=== PATIENT | female | born 1940 | race Caucasian/White ===

== ENCOUNTER 2019-01-23 09:45 | Inpatient (IN) ==
--- NOTE | 2019-01-10 15:11 | PAT Medication Instructions ---
Medication Instructions Date of Service January 10, 2019 Home Medications acetylcysteine [NAC] 600 mg PO BID albuterol sulfate 0.63 mg INHALATION QID PRN albuterol sulfate [Ventolin HFA] 2 puff INHALATION QID PRN aspirin 81 mg PO QPM azithromycin 250 mg PO QAM calcium carbonate-vitamin D3 1 cap PO BID qswahuwqkod-cjhwxaqxf-sswbqvqu 1 inh INHALATION QAM levothyroxine 75 mcg PO UD meclizine 25 mg PO DAILY PRN meloxicam 15 mg PO 3XWK metoprolol succinate 25 mg PO DAILY montelukast 10 mg PO QAM olopatadine [Patanol] 1 drp OPHTHALMIC (EYE) BID PRN omeprazole 40 mg PO 3XWK ropinirole 0.5 mg PO HS PRN sodium chloride [Saline Nasal] 1 spray INTRANASAL DAILY Continue as directed azithromycin 250 mg PO QAM omeprazole 40 mg PO 3XWK ASK your surgeon for instructions meloxicam 15 mg PO 3XWK STOP taking 24 hours before surgery ropinirole 0.5 mg PO HS PRN DO NOT take the morning of surgery acetylcysteine [NAC] 600 mg PO BID calcium carbonate-vitamin D3 1 cap PO BID montelukast 10 mg PO QAM sodium chloride [Saline Nasal] 1 spray INTRANASAL DAILY Take morning of surgery With a small sip of water, OTHERWISE NOTHING TO EAT OR DRINK AFTER MIDNIGHT: albuterol sulfate 0.63 mg INHALATION QID PRN (use if needed; please bring with you to hospital day of surgery if possible) albuterol sulfate [Ventolin HFA] 2 puff INHALATION QID PRN (if needed) ifymhdsowct-xbowwnjzc-twzqpaaz 1 inh INHALATION QAM levothyroxine 75 mcg PO UD meclizine 25 mg PO DAILY PRN (if needed) metoprolol succinate 25 mg PO DAILY olopatadine [Patanol] 1 drp OPHTHALMIC (EYE) BID PRN (if needed) Take evening before surgery acetylcysteine [NAC] 600 mg PO BID albuterol sulfate 0.63 mg INHALATION QID PRN (if needed) albuterol sulfate [Ventolin HFA] 2 puff INHALATION QID PRN (if needed) aspirin 81 mg PO QPM calcium carbonate-vitamin D3 1 cap PO BID meclizine 25 mg PO DAILY PRN (if needed) olopatadine [Patanol] 1 drp OPHTHALMIC (EYE) BID PRN (if needed) Other Notes If you have any questions please call us at [phone] or [phone] or [phone] or [phone]
--- NOTE | 2019-01-11 10:01 | Anesthesiology Consultation ---
Date of Service January 11, 2019 Assessment & Plan (1) Encounter for pre-operative examination: - Okay to continue ASA perioperatively per surgeon. - Possible difficult intubation due to anatomy* Chart Review Chart Review: Acceptable Risk for Surgery (pending evaluation of clinical status AM DOS) and Patient seen in Pre Admission Testing Teaching & Discussion Pre-Anesthesia Teaching/Discussion Notes: Instructed NPO after midnight before surgery,except medications with 15 cc of water. Medication instructions provided according to the PAT guidelines. History Surgery Operation Date: 01/23/19 08:50 Proposed Procedures p Right Total Knee Replacement - Billy Galeano MD Height/Weight Height: 5 ft Weight: 76.2 kg Allergies Allergy/AdvReac Type Severity Reaction Status Date / Time ampicillin Allergy Mild RASH Verified 01/08/19 10:23 clindamycin Allergy Mild RASH Verified 01/08/19 10:23 doxycycline Allergy Mild RASH Verified 01/08/19 10:23 erythromycin base Allergy Mild RASH Verified 01/08/19 10:23 nitrofurantoin Allergy Mild RASH Verified 01/08/19 10:23 tetracycline Allergy Mild RASH Verified 01/11/19 10:07 Medications Home Medications Medication Instructions Recorded Confirmed Last Taken acetylcysteine [NAC] 600 mg PO BID 01/08/19 01/08/19 Unknown albuterol sulfate 0.63 mg INHALATION QID PRN 01/08/19 01/08/19 Unknown albuterol sulfate [Ventolin HFA] 2 puff INHALATION QID PRN 01/08/19 01/08/19 Unknown aspirin 81 mg PO QPM 01/08/19 01/08/19 Unknown azithromycin 250 mg PO QAM 01/08/19 01/08/19 Unknown calcium carbonate-vitamin D3 1 cap PO BID 01/08/19 01/08/19 Unknown [Calcium 600 + D(3)] jorrcmkqvyl-mfehusdam-xpgofrfn 1 inh INHALATION QAM 01/08/19 01/08/19 Unknown [Trelegy Ellipta] levothyroxine 75 mcg PO UD 01/08/19 01/08/19 Unknown meclizine 25 mg PO DAILY PRN 01/08/19 01/08/19 Unknown meloxicam 15 mg PO 3XWK 01/08/19 01/08/19 Unknown metoprolol succinate 25 mg PO DAILY 01/08/19 01/08/19 Unknown montelukast 10 mg PO QAM 01/08/19 01/08/19 Unknown olopatadine [Patanol] 1 drp OPHTHALMIC (EYE) BID PRN 01/08/19 01/08/19 Unknown omeprazole 40 mg PO 3XWK 01/08/19 01/08/19 Unknown ropinirole 0.5 mg PO HS PRN 01/08/19 01/08/19 Unknown sodium chloride [Saline Nasal] 1 spray INTRANASAL DAILY 01/08/19 01/08/19 Unknown Past Medical History Medical History Asthma COPD (chronic obstructive pulmonary disease) GERD (gastroesophageal reflux disease) CONTROLLED Hyperlipidemia BORDERLINE Hypertension Hypothyroidism Osteoarthritis Restless leg syndrome Sleep apnea CPAP Urinary urgency Vertigo Past Family History Family History Father Family history of diabetes mellitus Past Surgical History Surgical History History of adenoidectomy History of arthroscopy RT KNEE History of bronchoscopy History of cataract surgery RT History of colonoscopy History of endoscopic sinus surgery History of thyroidectomy, subtotal X2 (NODULE REMOVED) History of tonsillectomy History of tooth extraction Past Anesthesia History No Hx of Anesthesia Complications and No Family Hx of Anesthesia Complications History of PONV No Motion Sickness Screening History of Motion Sickness: No Social History Smoking Status: Never smoker Do You Dip or Chew Tobacco: No Hx Alcohol Use: Yes Alcohol type: wine alcohol intake frequency: holidays/special occasions only Hx Substance Use: No substance use type: does not use Exercise / Class Metabolic Activity III < 4 Walking/Shop/Light housework Review of Systems Patient had complaints of wheezing and coughing (improving). Thoracic medicine ordered respiratory PCR and CXR (both of which were negative). Patient denies chest pain, shortness of breath, palpitations. Physical Exam Vital Signs VITALS BP 154/84 P 70 TEMP 98.2 SP02 97% RESP 20 PHYSICAL Full neck and c-spine range of motion. Full TMJ range of motion. TMD 1.5 finger breaths Mallampati Score 4 Dentition: intact, several crowns on molars Lungs: lower lung base rhonchi Cardiac: regular rate and rhythm, no murmurs noted Spine: normal Carotid arteries: negative bruit Extremities: no edema Small chin Small oral opening Testing Electrocardiogram Date: 01/11/19 NSR at 67bpm. NS STA. Chest X-Ray Date: 01/10/19 Findings: + NAD Laboratory Results 01/11/19 10:30 01/11/19 10:30 Blood Type A Positive 01/11/19 10:30 Antibody Screen NEGATIVE 01/11/19 10:30 PT 10.5 Seconds (9.0-12.0) 01/11/19 10:30 INR 1.0 (0.9-1.1) 01/11/19 10:30 APTT 32.5 Seconds (21.0-31.0) H 01/11/19 10:30
[2019-01-11 11:16] LABS: Basophils # (auto) 0.03 K/uL (0-0.2); Basophils % (auto) 0.7 %; Eosinophils # (auto) 0.15 K/uL (0-0.5); Eosinophils % (auto) 3.5 %; Hematocrit (blood only) 40.1 % (37-47); Hemoglobin 12.9 g/dL (12.0-16.0); Lymphocytes # (auto) 0.95 K/uL (1.2-3.4); Lymphocytes % (auto) 21.9 %; Mean Corpuscular Hgb Conc 32.2 g/dL (32-36); Mean Corpuscular Volume 90.9 fL (80-100); Mean Platelet Volume 9.6 fL (7.4-10.4); Monocytes # (auto) 0.31 K/uL (0.11-0.59); Monocytes % (auto) 7.2 %; Neutrophils # (auto) 2.89 K/uL (1.4-6.5); Neutrophils % (auto) 66.7 %; Platelet Count 237 K/uL (130-400); RDW Coefficient of Variation 14.1 % (11.5-14.5); RDW Standard Deviation 47.2 fL (36.4-46.3); Red Blood Count 4.41 M/uL (4.2-5.4); White Blood Count 4.33 K/uL (4.8-10.8)
[2019-01-11 11:25] LABS: BUN Creatinine Ratio 24.3 (10-20); Calcium 9.6 mg/dl (8.5-10.1); Creatinine Clr Calc Pharmacy 33.8 ml/min; Est GFR (African American) 48.3; Est GFR (Non-African American) 41.7; Potassium 4.8 mmol/L (3.5-5.1)
[2019-01-11 11:33] LABS: Partial Thromboplastin Ratio 1.2; Partial Thromboplastin Time 32.5 Seconds (21.0-31.0); Prothrombin Time 10.5 Seconds (9.0-12.0)
--- NOTE | 2019-01-20 11:32 | History and Physical Report ---
DATE OF ADMISSION: 01/23/2019 CHIEF COMPLAINT: Right knee pain and discomfort. HISTORY OF PRESENT ILLNESS: The patient is a 78-year-old female who presents for surgical treatment of her right knee. She has got a long history of right knee problem and had a right knee scoped back in 2000. She developed increased pain and discomfort globally over the past several years. The more she walks, the more it hurts. It also feels unstable like it is going to give out on her. She has been through conservative care in the past. She had her knee scoped and then had various medicines which do not really help much. She has difficulty going up and down steps. She has nighttime pain. She would like to proceed with knee replacement. PAST MEDICAL HISTORY: 1. Hypothyroidism. 2. 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 3. Hypertension. 4. Elevated cholesterol. 5. Gastroesophageal reflux disease. 6. Mild obesity, BMI of 33. PAST SURGICAL HISTORY: Previous surgeries include: 1. Sinus surgery. 2. Trigger finger repair. 3. Right knee arthroscopy done in 2000 by myself. 4. Partial thyroidectomy. ALLERGIES: PENICILLIN, CLINDAMYCIN, ERYTHROMYCIN, NITROFURANTOIN, TETRACYCLINE, VIBRAMYCIN, ALL WHICH CAUSE RASH. No breathing problems with any of these meds. CURRENT MEDICINES: Include: 1. Levothyroxine 75 mcg. 2. Meloxicam 15 mg. 3. Latanoprost ophthalmic solution 2 drops in each eye as needed. 4. Montelukast 10 mg. 5. Vitamin C. 6. Omeprazole 40 mg. 7. Aspirin 81 mg. 8. Calcium with D. 9. Ropinirole 0.5 mg at bedtime for restless leg. 10. Meclizine 25 mg 3 times a day as needed. 11. Ventolin inhaler 2 puffs every 4-6 hours p.r.n. 12. Metoprolol 25 mg. 13. Nasal spray. 14. Eyedrops. 15. Erythromycin 250. 16. Albuterol inhaler every 4 hours p.r.n. 17. Ellipta inhaler once a day. 18. Spiriva once a day. SOCIAL HISTORY: A 78-year-old female. She is . Lives alone. Lives in [place]. No alcohol intake. She does not smoke. FAMILY HISTORY: Significant for heart disease and diabetes. REVIEW OF SYSTEMS: Significant for some emphysema and COPD and bronchiectasis. She has got a CPAP machine. Denies any chest pain or shortness of breath. No DVT or PE. PHYSICAL EXAMINATION: GENERAL: Reveals a pleasant elderly female. Looks to be in pretty good health. HEENT: Benign. NECK: Supple. No lymphadenopathy. LUNGS: Clear to auscultation. HEART: Regular rate and rhythm. ABDOMEN: Soft, nontender, nondistended. EXTREMITIES: Grossly neurovascularly intact except as follows: Examination of the right leg reveals the patient walks independently. She does limp on this right side with a varus alignment and walks with a bit of flexed knee gait. She has got bony hypertrophy medially. Small knee effusion. Range of motion is 10 degrees short of full extension to 100 degrees of flexion. She is pretty tight with flexion. No varus or valgus instability. No pain with hip motion. X-RAYS: X-rays of the right knee reviewed. Shows advanced right knee DJD. She has got complete loss of medial joint space. She has tibial femoral subluxation. Fairly large posterior osteophytes. ASSESSMENT: A 78-year-old white female with advanced right knee degenerative joint disease with history of knee arthroscopy 19 years ago. She has failed conservative treatment and would like to have her right knee replaced. PLAN: We will take her to the operating room and do a right total knee replacement. The risks and benefits of this procedure were explained to the patient including but not limited to DVT, PE, , infection, neurological injury, vascular injury, bleeding problem, pain, limited range of motion, stiffness, failure to relieve her symptoms, incomplete relief of symptoms, need for further surgery in the future, fracture, leg length inequality, nerve palsy, etc. The patient understands and desires to proceed. Informed consent was obtained. As far as discharge plans, she lives alone and is hoping to be discharged to [place] for a brief rehab stay. She does have this ALLERGIC REACTION TO PENICILLIN. It is only hives and we will give her Ancef preoperatively.
[~2019-01-23 09:45] MED LIST: ACETAMINOPHEN 500 MG TAB PO SCH; ATROPINE SULFATE 0.1 MG/ML 10ML SYR IV PRN; BUPIVACAINE 0.5 % 5 MG/1 ML PF 10ML VIAL ONE; BUPIVACAINE LIPOSOME/PF 266 MG, BUPIVACAINE/EPINEPHRINE 50 ML, SODIUM CHLORIDE 0.9% 30 ... INFIL SCH; CEFAZOLIN 2000MG 2,000 MG/15 ML SYR IV SCH; FAMOTIDINE 20 MG TAB PO SCH; GABAPENTIN 300 MG PO SCH; GENERAL ORDER PROBLEM SCH; LR 500ML BOLUS, THEN 15ML/HR IV SCH; LR 60ML/HR IV SCH; METOCLOPRAMIDE HCL 10 MG TABLET PO SCH; ONDANSETRON INJ 2 MG/ML 2 ML VIAL IV PRN; ROPIVACAINE 0.5% 5 MG/ML 30 ML VIAL ONE; TRANEXAMIC ACID 1,000 MG **IV Intra-op IV SCH; TRANEXAMIC ACID 1,000 MG x 1 **For Topical Use TOP SCH; ePHEDrine sulfate 50 MG/ML AMP IV PRN; fentaNYL citrate 100 MCG/2 ML VIAL IV PRN
--- OUTSIDE RECORDS SUMMARY | 2019-01-23 10:58 | External Medical Summary | Continuity of Care Document ---
:1940 Author Name Bladimir Joseph, Provider Address Unavailable Unavailable , Care Team Providers Name Role Phone Victoria Johnson [email or web address] Bladimir HERNANDEZ, Doris [email or web address] Bud [email or web address] INDERJIT Joseph, VICTORIA Haas Unavailable Unavailable NOE Unavailable Unavailable ALEXIS, R Unavailable Unavailable EICHENLAUB, A Unavailable Unavailable Unavailable Unavailable Unavailable Problems Chronic sinusitis (473.9) (J32.9) Dizziness (780.4) (R42) Backache (724.5) (M54.9) Bronchiectasis (494.0) (J47.9) Abnormal finding on thyroid function test (794.5) (R94.6) Visit for screening mammogram (V76.12) (Z12.31) Asthma (493.90) (J45.909) Allergic rhinitis (477.9) (J30.9) GERD without esophagitis (530.81) (K21.9) Hypothyroidism (244.9) (E03.9) Osteopenia (733.90) (M85.80) Fatigue (780.79) (R53.83) Plantar fasciitis (728.71) (M72.2) Need for immunization against influenza (V04.81) (Z23) Need for prophylactic vaccination agains t Streptococcus pneumoniae (pneumococcus) (V03.82) (Z23) Urinary frequency (788.41) (R35.0) Cystocele, midline (618.01) (N81.11) Abnormality of colon (569.9) (K63.9) Osteoarthritis of knee (715.36) (M17.10) Benign essential hypertension (401.1) (I10) Labile hypertension (401.9) (R09.89) Obstructive sleep apnea (327.23) (G47.33) Primary osteoarthritis of right knee (715.16) (M17.11) Never smoker Allergies and Adverse Reactions Ampicillin CAPS (Allergy) Clindamycin (Allergy) Erythromycin Derivatives (Allergy) Nitrofurantoin CAPS (Allergy) Tetracyclines (Allergy) Vibramycin CAPS (Allergy) Medications Shingrix 50 MCG Intramuscular Suspension Reconstituted; 0.5 mL now and again in 2-6 months Opal Johnson Start: 03-May-2018 Quantity: 0.5 Refills: 1 rOPINIRole HCl - 0.5 MG Oral Tablet; 1 t ab at bedtime as needed for restless legs Opal Johnson Start: 21-Mar-2014 Quantity: 90 Refills: 1 Patanol 0.1 % Ophthalmic Solution; USE 2 DROPS IN EACH EYE ONCE DAILY NEEDED Opal Jonhson Start: 21-Jan-2014 Quantity: 5 Refills: 4 Azithromycin 250 MG Oral Tablet; 1 tab daily Start: 21-Sep-2018 Refills: 0 30 Tablet Bottle Meclizine HCl - 25 MG Oral Tablet; TAKE 1 TABLET 3 TIMES LUANA LY NEEDED. Start: 18-Aug-2015 Quantity: 90 Refills: 0 Metoprolol Succinate ER 25 MG Oral Table t Extended Release 24 Hour; TAKE 1 TABLET DAILY. MARY Garrison Start: 16-Feb-2016 Refills: 3 100 Tablet Bottle Montelukast Sodium 10 MG Oral Tablet; TAKE ONE TABLET BY MOUTH ONCE A DAY. Opal Johnson Start: 20-Feb-2014 Quantity: 90 Refills: 1 Eye Drops 0.05 % Ophthalmic Solution; INSTILL 1 DROP I NTO BOTH EYES ONCE DAILY. Start: 03-May-2018 Refills: 0 15 ML Bottle Nasal [place] 0.05 % Nasal Solution; INSTILL 2 SQUIRT Daily Start: 03-May-2018 Refills: 0 30 ML Bottle Acetylcysteine Powder; USE DIRECTED. Start: 03-May-2018 Refills: 0 Calcium-Vitamin D 600-125 MG-UNIT Oral Tablet; TAKE 1 TABLET TWICE DAILY. Start: 20-Feb-2014 Refills: 0 Aspirin EC 81 MG Oral Tablet Delayed Release; TAKE 1 TABLET DAILY. Start: 20-Feb-2014 Quantity: 90 Refills: 3 Vitamin C 500 MG Oral Capsule; TAKE 1 CAPSULE DAILY. Start: 20-Feb-2014 Refills: 0 Omeprazole 40 MG Oral Capsule Delayed Re lease; TAKE 1 CAPSULE, BY MOUTH, EVERY DAY. Opal Johnson Start: 23-Nov-2018 Quantity: 30 Refills: 11 Trelegy Ellipta 100-62.5-25 MCG/INH Inha lation Aerosol Powder Breath Activated; 1 puff daily Start: 21-Sep-2018 Refills: 0 28 Inhaler Pack Albuterol Sulfate (2.5 MG/3ML) 0.083% In halation Nebulization Solution; INHALE 1 VIAL Every 4 hours PRN Start: 21-Sep-2018 Refills: 2 Levothyroxine Sodium 75 MCG Oral Tablet; TAKE 1 AND 1/2 TABLETS ON TUESDAY THEN TAKE 1 TABLET ON ALL OTHER DAYS OF THE WEEK Opal Johnson Start: Nov-2018 Quantity: 45 Refills: 5 Meloxicam 15 MG Oral Tablet; TAKE 1 TABLET DAILY. DO Bud Love Start: 24-Aug-2018 Quantity: 90 Refills: 1 Ventolin HFA 108 (90 Base) MCG/ACT Inhal ation Aerosol Solution; INHALE 2 PUFFS EVERY 4-6 HOURS NEEDED. MARY Garrison Start: 18-Aug-2015 Quantity: 1 18 GM Inhaler Refills: 1 Procedures Procedures not documented Immunizations Pneumococcal polysaccharide vaccine, 23 valent On: 5 Zoster (Zostavax) On: 27-May-2009 Tdap (Adacel) On: 18-Sep-2010 Fluzone High-Dose Intramuscular Suspension On: 15-Jul-2014 1 6:32 Lot #: [id number], SANOFI PASTEUR Prevnar 13 Intramuscular Suspension On: 26-Aug-2014 8:21 Lot #: [id number], W[place]ETH Fluzone High-Dose Intramuscular Suspension On: 04-Jul-2015 14 :28 Lot #: [id number], SANOFI PASTEUR Fluzone High-Dose Intramuscular Suspension On: 14-Jun-2016 1 5:04 Lot #: [id number], SANOFI PASTEUR Fluzone High-Dose Intramuscular Suspension On: 18-Jul-2017 1 6:32 Lot #: [id number], SANOFI PASTEUR Fluzone High-Dose Intramuscular Suspension On: 15-Jun-2018 1 3:46 Lot #: [id number], SANOFI PASTEUR Social History - Smoking Status Never smoker Plan of Treatment Planned Encounters Appointment; Victoria Johnson M.D. Start: 06-Sep-2019 10:45 Req uest Planned Observations Planned Goals not documented Results CBC With DIFF (Pending) Laboratory: [facility] [address] [facility] [address] tel: 11-Jan-2019 10:30 WBC 4.33 K/uL (below low Range: 4.8-10. 8 K/uL threshold) RBC 4.41 {M/uL} Range: 4.2-5.4 M/uL HEMOGLOBIN 12.9 g/dL Range: 12.0-16.0 g /dL HEMATOCRIT 40.1 % Range: 37-47 % MCV 90.9 fL Range: 80-100 fL MCH 29.3 pg Range: 25-34 pg MEAN CORPUSCULAR HGB CONC 32.2 Range: 3 2-36 g/dL g/dL RED CELL DISTRIBUTION WIDTH SD Range: 3 6.4-46.3 fL 47.2 fL (above high threshold) RED CELL DISTRIBUTION WIDTH CV Range: 1 1.5-14.5 % 14.1 % PLATELET COUNT 237 K/uL Range: 130-400 K/uL MEAN PLATELET VOLUME 9.6 fL Range: 7.4- 10.4 fL NEUT % 66.7 % Range: % LYMPH % 21.9 % Range: % MONO % 7.2 % Range: % EOS % 3.5 % Range: % BASO % 0.7 % Range: % IG% 0.0 % Range: % Neutrophils (Auto) 2.89 K/uL Range: 1. 4-6.5 K/uL LYMPH ABS # 0.95 K/uL (below low Range: 1.2-3.4 K/uL threshold) MONO ABS # 0.31 K/uL Range: 0.11-0.59 K /uL EOS ABS # 0.15 K/uL Range: 0-0.5 K/uL BASO ABS # 0.03 K/uL Range: 0-0.2 K/uL IG# 0.00 K/uL Range: 0.00-0.02 K/ uL Basic Metabolic Panel Laboratory: [facility] Laboratory [address] (Pending) [address] [facility] [address] tel: 11-Jan-2019 10:30 SODIUM 139 mmol/L Range: 136-145 mmol /L POTASSIUM 4.8 mmol/L Range: 3.5-5.1 mmo l/L CHLORIDE 111 mmol/L (above high Range: 98-107 mmol/L threshold) CARBON DIOXIDE 25 mmol/L Range: 21-32 m mol/L ANION GAP 3.0 Range: 3-11 BLOOD UREA NITROGEN 30 mg/dl Range: 7-1 8 mg/dl (above high threshold) CREATININE 1.23 mg/dl (above high Range: 0.6-1.2 mg/dl threshold) Estimated Creatinine Clearance Range: m l/min 33.8 ml/min Comments: Est. Creat inine Clearance (Mod Cockcroft-Gault) for pharmacydosing purposes. Estimated GFR () Comment s: Units: ml/min per 48.3 1.73 meters squaredT he estimated GFR (CKD-E PI equation) has not be en validatedfor inpatie nt settings and may not be an accurate reflectiono f renal function in critical ly ill patients or those withrapidly changing renal function (e.g. VANESSA). Estimated GFR (Non- Comments: Uni ts: ml/min per Bahamian) 41.7 1.73 meters squaredT he estimated GFR (CKD-E PI equation) has not be en validatedfor inpatie nt settings and may not be an accurate reflectiono f renal function in critical ly ill patients or those withrapidly changing renal function (e.g. VANESSA). BUN/CREATININE RATIO 24.3 (above Range: 10-20 high threshold) GLUCOSE 91 mg/dl Range: 70-99 mg/dl CALCIUM 9.6 mg/dl Range: 8.5-10.1 mg/ dl PT/INR (Pending) Laboratory: [facility] [address] [facility] [address] tel: 11-Jan-2019 10:30 Prothrombin Time 10.5 {Seconds} Range: 9.0-12.0 Seconds INR 1.0 Range: 0.9-1.1 PTT (Pending) Laboratory: [facility] [address] [facility] [address] tel: 11-Jan-2019 10:30 PTT PATIENT 32.5 {Seconds} (above Range: 21.0-31.0 Seconds high threshold) Comments: Therapeuti c APTT range is 46.0 - 66.4 seconds PARTIAL THROMBOPLASTIN RATIO 1.2 Encounters Appointment; Victoria Johnson M.D. 21-Sep-2018 11:30 Encounter Diagnosis: Problem not documented Appointment; LEONEL Graf Nurse 21-Sep-2018 11:15 Encounter Diagnosis: Problem not documented Appointment; LEONEL Graf Nurse 15-Jun-2018 13:10 Encounter Diagnosis: Problem not documented Appointment; Victoria Johnson M.D. 03-May-2018 13:45 Encounter Diagnosis: Problem not documented Appointment; Victoria Johnson M.D. 24-Aug-2017 10:45 Encounter Diagnosis: Problem not documented Appointment; Nurse Celso 24-Aug-2017 10:30 Encounter Diagnosis: Problem not documented Appointment; LEONEL Graf Nurse 18-Jul-2017 15:55 Encounter Diagnosis: Problem not documented Appointment; Victoria Johnson M.D. 06-Sep-2019 10:45 Encounter Diagnosis: Problem not documented
[2019-01-23] MEDS ORDERED: CEFAZOLIN 2000MG 2,000 MG/15 ML SYR IV ONE (11:00)
--- NOTE | 2019-01-23 11:03 | History & Physical Bridge Note ---
Date of Service January 23, 2019 History & Physical Bridge Note I have examined the patient, reviewed the History & Physical and in the interval since the performance of the History & Physical I have noted the following changes of clinical significance: no changes noted
[2019-01-23] MEDS ORDERED: ALBUT/IPRATROP 3MG/0.5MG NEB 3 ML VIAL NEB STA (11:50)
[2019-01-23] MEDS ORDERED: MIDAZOLAM HCL 1 MG/ML 2ML VIAL ONE (12:27)
[2019-01-23] MEDS ORDERED: fentaNYL citrate 100 MCG/2 ML VIAL ONE (12:28)
[2019-01-23] MEDS ORDERED: SODIUM CHLORIDE 0.9% PF 50 ML VIAL ONE (13:05)
[2019-01-23] MEDS ORDERED: EPINEPHrine INJ 1 MG/ML AMP ONE (13:05)
[2019-01-23] MEDS ORDERED: BUPIVACAINE LIPOSOME 1.3% 266 MG/20 ML VIAL ONE (13:05)
[2019-01-23] MEDS ORDERED: BACITRACIN INJ 50,000 UNIT VIAL ONE (13:05)
[2019-01-23] MEDS ORDERED: BUPIVACAINE 0.25% 30 ML VIAL ONE (13:05)
[2019-01-23] MEDS ORDERED: LIDOCAINE HCL 2% 2 ML VIAL/AMP(20MG/ML) INFIL ONE (14:22)
[2019-01-23] MEDS ORDERED: PROPOFOL IV EMULSION 10 MG/ML 20 ML VIAL IV ONE ×2 (14:22→14:31)
--- NOTE | 2019-01-23 15:00 | Post Operative Brief Note ---
Immediate Post Op Note v1 Date of Surgery January 23, 2019 Pre & Post Diagnosis Operation Date: 01/23/19 12:30 Pre-Op Diagnosis: Right Knee Advanced Degenerative Joint Disease Post-Op Diagnosis: Right Knee Advanced Degenerative Joint Disease Procedure Operation Date: 01/23/19 12:30 Actual Procedures p Right Total Knee Arthroplasty(Right) - Billy Galeano MD Surgeon Billy Galeano MD Health Science Writer Jean, PAC Estimated Blood Loss 50 Findings Consistent with Post-Op Diagnosis Fluids 1300 cc Specimens Right Knee Drains Rodriguez Catheter (A 16 Tongan rodriguez catheter was inserted by ST [place], without difficulty, clear yellow urine obtained, output to be monitored by Anesthesia.) Anesthesia Type Spinal MAC Complications none Disposition Accompanied Patient To Recovery: No Disposition: Recovery Room
--- NOTE | 2019-01-23 15:34 | XRay Report ---
RIGHT KNEE 2 VIEWS History: Right total knee arthroplasty. Degenerative arthritis. Postop. FINDINGS: The patient is status post a right total knee arthroplasty. The hardware is intact. No frac ture or dislocation. Skin marie are in place. IMPRESSION: Right total knee arthroplasty. No evidence for hardware complication. Electronically signed by: Johnathan Scott M.D. 01/23/2019 3:32 PM
--- NOTE | 2019-01-23 15:51 | Anesthesiology Progress Note ---
Date of Service January 23, 2019 Anesthesia Post Procedure Vital Signs Vital Signs: Temp Pulse Pulse Resp BP BP Pulse Ox 01/23/19 15:40 36.9 C 60 16 154/80 H 99 01/23/19 15:30 60 16 158/72 H 99 01/23/19 15:20 59 L 16 171/73 H 98 01/23/19 15:10 60 16 152/71 H 99 01/23/19 15:04 37.0 C 60 16 137/63 99 01/23/19 11:57 67 14 96 01/23/19 10:42 36.8 C 70 18 214/92 H 97 Pain Intensity Right Knee: Pain Intensity: 0 Transfer of Care Handoff Completed per policy Notes Mental Status: alert / awake / arousable Patient Amnestic to Procedure: Yes Nausea / Vomiting: adequately controlled Pain: adequately controlled Airway Patency, RR, SpO2: stable & adequate BP & HR: stable & adequate Hydration State: stable & adequate Neuraxial Anesthesia: was administered and sensory block is resolving Anesthetic Complications: no major complications apparent and Pt Satisfied with anesthetic care
[2019-01-23] MEDS ORDERED: ROPINIROLE HCL 0.25 MG TABLET PO PRN (16:06)
[2019-01-23] MEDS ORDERED: MECLIZINE HCL 25 MG TAB PO PRN (16:06)
[2019-01-23] MEDS ORDERED: MAGNESIUM HYDROXIDE SUSP 30 ML UDC PO PRN (16:06)
[2019-01-23] MEDS ORDERED: NALOXONE HCL 0.4 MG/1 ML VIAL/CARP IV PRN (16:06)
[2019-01-23] MEDS ORDERED: BISACODYL 10 MG SUPP PR PRN (16:06)
[2019-01-23] MEDS ORDERED: NO NSAIDS SCH (16:06)
[2019-01-23] MEDS ORDERED: ALBUTEROL HFA 8 GM INHALER INH PRN (16:06)
[2019-01-23] MEDS ORDERED: ALUMINUM/MAGNESIUM SUSP 30 ML UDC PO PRN (16:06)
[2019-01-23] MEDS ORDERED: METOCLOPRAMIDE HCL INJ 5 MG/ML 2 ML VIAL IV PRN (16:06)
[2019-01-23] MEDS ORDERED: ALBUTEROL 0.083% NEBU SOLN 3 ML VIAL INH PRN ×2 (16:06→17:00)
[2019-01-23] MEDS: ASCORBIC ACID 500 MG TAB PO SCH (18:44)
[2019-01-23] MEDS: FERROUS GLUCONATE 324 MG TAB PO SCH (18:44)
[2019-01-23] MEDS: SODIUM CHLORIDE 0.9% 1000ML 1,000 ML IV SCH (18:54)
--- NOTE | 2019-01-23 20:43 | Operative Report ---
DATE OF OPERATION: 01/23/2019 SURGEON: Billy Galeano MD. TEMPERING MACHINE OPERATOR: ALPHONSO Capellan. PREOPERATIVE DIAGNOSIS: Right knee degenerative joint disease. POSTOPERATIVE DIAGNOSIS: Right knee degenerative joint disease. PROCEDURE PERFORMED: Right cemented posterior stabilized total knee arthroplasty. COMPLICATIONS: None. ESTIMATED BLOOD LOSS: 50 mL. FLUID REPLACEMENT: 1300 mL of crystalloid fluid replacement. ANESTHESIA: Spinal with adductor canal block. DRAINS: None. SPECIMENS: Right knee sent for pathology. TOURNIQUET TIME: 54 minutes at 300 mmHg. OPERATIVE INDICATIONS: The patient is a 78-year-old very active, independent female who has had a long history of knee problems. She had a right knee scoped about 19 years ago. She did pretty well, but over the past 5-10 years, she developed increased pain and discomfort in her right knee. She has been through extensive conservative treatment. It was really starting to limit her lifestyle and ability to maintain an independent lifestyle and she elected to proceed with total knee arthroplasty. OPERATIVE FINDINGS: Revealed advanced right knee DJD. She had extensive grade 4 changes in all 3 compartments, most severe in the medial and patellofemoral compartments. She had a fixed varus deformity to her knee and a 10 degree flexion contracture. She had a large knee joint effusion. Diffuse osteopenia. OPERATIVE IMPLANTS CONSISTED OF: 1. Biomet Vanguard size 60 right posterior stabilized femoral component. 2. A Biomet size 63 tibial tray. 3. A 12 mm posterior stabilized polyethylene insert. 4. A 25 x 8 all poly patella. OPERATIVE PROCEDURE: The patient was taken to the operating room, identified, and placed on the operating table in supine position. All contact areas were appropriately padded. IV antibiotics were provided by anesthesia team. A spinal anesthetic and adductor canal block had been provided in the holding area. Espinoza catheter was placed in sterile fashion. Right thigh tourniquet was then placed and the right lower extremity was then prepped and draped in usual sterile fashion. The right leg was elevated and exsanguinated with Esmarch and tourniquet was placed at 300 mmHg. An anterior approach to the right knee was then performed through a longitudinal incision centered over the patella. Sharp dissection was carried up to the subcutaneous tissues down to the level of the extensor mechanism. A medial parapatellar arthrotomy incision was made. Some subperiosteal dissection was carried out medially. The fat pad was resected from beneath the patellar tendon. The lateral patellofemoral ligament was released. The patella was everted and knee was flexed. The osteophytes were taken off the distal femur. The ACL and PCL were then released from the distal femur and the tibia subluxated anteriorly. External tibial alignment jig was then placed in the anterior face of the tibia and adjusted 14 mm medially. Proximal tibial cut was made to remove about a millimeter or 2 of bone from the most deficient aspect of the posteromedial tibial plateau. Some osteophytes were taken off medially and posteromedially. The tibia was sized to size 63. Attention was drawn to the femur. The distal femur was entered with a sharp drill. Intramedullary canal was suctioned. A right 5 degree valgus cutting guide was placed. The distal femoral cutting block was pinned in place. Distal femoral cut was made to take an additional 3 mm of bone off the distal femur. The femur was then sized to a size 60. We downsized this almost an entire size due to the very narrow medial and lateral dimensions of the femur. AP cutting block was pinned parallel to the epicondylar axis, which was 3 degrees of external rotation. The anterior cut, anterior chamfer cut, posterior cut, and posterior chamfer cuts were made. Box cutting guide was placed and adjusted slightly lateral and a box cut was made. The knee was flexed. The remnants of the medial and lateral menisci were excised. The osteophytes were then taken off the posterior aspect of the femur. A trial femoral component was placed. The tibial tray was pinned in maximum external rotation and the drill and stem punch were used to create defect in proximal tibia for the tibial tray. The knee was then trialed and the knee 12 mm insert fit most appropriately. Attention was drawn to the patella. The patella was cleaned of all soft tissues. Patella thickness measured 20 mm in thickness and was cut down to 13. It was sized to a size 25 patella. Lateral osteophyte was removed. Lug holes were drilled. Patella button was placed. Knee was taken through range of motion, patella tracked nicely with no thumbs test. Attention was then drawn toward placement of the permanent components. All trial components were removed. A bone plug was placed in the distal femur to limit blood loss. A double batch of Palacos G cement was mixed. A Biomet Vanguard size 60 right posterior stabilized femoral component, size 63 tibial tray, 12 mm posterior stabilized polyethylene insert, and a 25 x 8 all poly patella then cemented in place. Knee was brought out into full extension until cement hardened. A final cement check was then performed. Pericapsular tissues were injected with a total of 100 mL of a combination of 20 mL of Exparel, 30 mL of normal saline, 50 mL of 0.25% Marcaine with epinephrine. The patient did receive 1 g of tranexamic acid. The tourniquet was then let down for a final tourniquet time of 54 minutes. Hemostasis was assured with use of electrocautery. The extensor mechanism was then closed with combination of #1 PDS suture and #1 Vicryl suture in a [id number] fashion. Extensor mechanism was checked and found to be intact. The subcutaneous tissues were then closed with 2-0 Dexon suture in a buried interrupted fashion. Skin was closed with skin marie. Leg was then cleaned, dried, and a sterile dressing of Xeroform, 4 x 4, sterile cast padding and Collin bandage were applied. The patient was then transferred to the recovery room in stable condition. The patient tolerated the procedure well, no complications. All instrument and sponge counts were correct at the end of the operation. I attest to the content of the Intraoperative Record and any orders documented therein. Any exception s are noted below.
[2019-01-23] MEDS: ACETAMINOPHEN 500 MG TAB PO SCH (21:00)
[2019-01-23] MEDS ORDERED: TRANEXAMIC ACID 1,000 MG in 0.9 % SODIUM CHLORIDE 100 ML IV SCH (21:00)
[2019-01-23] MEDS: TRAMADOL HCL 50 MG TABLET PO PRN (21:15)
[2019-01-23] MEDS: CALCIUM 600MG + VIT D 400 IU TAB PO SCH (21:17)
[2019-01-23] MEDS: DOCUSATE SODIUM 100 MG CAP PO SCH (21:17)
[2019-01-23] MEDS: MONTELUKAST SODIUM 10 MG TABLET PO SCH (21:17)
[2019-01-23] MEDS: ASPIRIN 81 MG ECTAB PO SCH (21:18)
[2019-01-23] MEDS: SENNA 8.6 MG TAB PO SCH (21:18)
[2019-01-23] MEDS: ACETYLCYSTEINE 600 MG CAP PO SCH (21:19)
[2019-01-23] MEDS: CEFAZOLIN 1000MG 1,000 MG/7.5 ML SYR IV SCH (21:32)
[2019-01-24] MEDS: ACETAMINOPHEN 500 MG TAB PO SCH ×3 (04:46→20:23)
[2019-01-24] MEDS: LEVOTHYROXINE SODIUM 75 MCG TABLET PO SCH (04:47)
[2019-01-24] MEDS: CEFAZOLIN 1000MG 1,000 MG/7.5 ML SYR IV SCH (04:47)
[2019-01-24] MEDS: SODIUM CHLORIDE 0.9% 1000ML 1,000 ML IV SCH (04:55)
[2019-01-24 05:47] LABS: Hemoglobin 11.9 g/dL (12.0-16.0); Mean Corpuscular Hgb Conc 33.1 g/dL (32-36); Mean Corpuscular Volume 90.2 fL (80-100); Mean Platelet Volume 9.3 fL (7.4-10.4); Platelet Count 207 K/uL (130-400); RDW Coefficient of Variation 13.8 % (11.5-14.5); RDW Standard Deviation 45.5 fL (36.4-46.3); Red Blood Count 3.99 M/uL (4.2-5.4); White Blood Count 6.75 K/uL (4.8-10.8)
[2019-01-24 06:28] LABS: BUN Creatinine Ratio 16.4 (10-20); Creatinine Clr Calc Pharmacy 34.2 ml/min; Est GFR (African American) 48.8; Est GFR (Non-African American) 42.1; Potassium 4.8 mmol/L (3.5-5.1)
[2019-01-24] MEDS: SODIUM CHLORIDE 0.65% NA SOLN 45 ML (OCEAN) NAE SCH (08:35)
[2019-01-24] MEDS: ASCORBIC ACID 500 MG TAB PO SCH ×2 (08:35→16:14)
[2019-01-24] MEDS: ACETYLCYSTEINE 600 MG CAP PO SCH ×2 (08:35→20:23)
[2019-01-24] MEDS: AZITHROMYCIN 250 MG TAB PO SCH (08:35)
[2019-01-24] MEDS: CALCIUM 600MG + VIT D 400 IU TAB PO SCH ×2 (08:35→20:23)
[2019-01-24] MEDS: ASPIRIN 81 MG ECTAB PO SCH ×2 (08:35→20:23)
[2019-01-24] MEDS: DOCUSATE SODIUM 100 MG CAP PO SCH ×2 (08:35→20:23)
[2019-01-24] MEDS: MULTIVITAMIN TAB PO SCH (08:35)
[2019-01-24] MEDS: FERROUS GLUCONATE 324 MG TAB PO SCH ×2 (08:35→16:14)
[2019-01-24] MEDS: PANTOprazole 40 MG TAB PO SCH (08:35)
[2019-01-24] MEDS: TRAMADOL HCL 50 MG TABLET PO PRN ×2 (08:39→16:14)
--- NOTE | 2019-01-24 10:10 | Progress Note ---
DATE: 01/24/2019 SUBJECTIVE: A 78-year-old white female postop day 1 from right knee replacement. She is doing pretty well. She describes some thigh discomfort and some knee discomfort, but pretty manageable. No chest pain or shortness of breath. Not feeling dizzy or lightheaded. OBJECTIVE: VITAL SIGNS: Temperature 36.8. Vital signs stable. GENERAL: Reveals a pleasant elderly female. She is sitting about her bedside chair, looks pretty comfortable. LUNGS: Clear to auscultation. HEART: Has a regular rate and rhythm. ABDOMEN: Soft, nontender, nondistended. EXTREMITIES: Grossly neurovascularly intact except as follows. Examination of the right leg reveals the dressing to be clean, dry and intact. There is no drainage. She can dorsiflex and plantarflex her foot appropriately. She is neurologically intact. LABORATORY DATA: Hemoglobin 11.9. Hematocrit 36.0. Electrolytes are stable. Creatinine is top normal and stable. ASSESSMENT: A 78-year-old white female postop day 1 from right knee replacement, doing pretty well. Having some pain which is not expected and nothing out of the ordinary. She is neurologically intact. Pain has been reasonably well controlled. PLAN: 1. DVT prophylaxis include thigh high TEDs, SCDs and aspirin twice a day. 2. PT/OT. Weight bear as tolerated. Right total knee protocol. 3. Pain control, doing pretty well with current pain regimen. Unfortunately, we cannot give her NSAIDs due to her elevated creatinine. 4. Disposition: She is planning to be discharged to [place] for rehab stay once medically stable.
--- NOTE | 2019-01-24 10:14 | Anesthesiology Progress Note ---
Date of Service January 24, 2019 Anesthesia Post Procedure Vital Signs Vital Signs: Temp Pulse Pulse Pulse Resp BP BP 01/24/19 06:59 36.8 C 60 18 147/75 H 01/24/19 02:35 36.6 C 63 16 145/86 H 01/23/19 22:28 37.0 C 67 16 150/76 H 01/23/19 20:27 36.8 C 64 16 165/83 H 01/23/19 18:52 36.4 C L 60 18 136/72 01/23/19 17:55 61 18 121/70 01/23/19 16:48 59 L 18 165/76 H 01/23/19 16:21 57 L 18 160/74 H 01/23/19 15:50 36.5 C 59 L 18 163/80 H 01/23/19 15:40 36.9 C 60 16 154/80 H 01/23/19 15:30 60 16 158/72 H 01/23/19 15:20 59 L 16 171/73 H 01/23/19 15:10 60 16 152/71 H 01/23/19 15:04 37.0 C 60 16 137/63 01/23/19 11:57 67 14 01/23/19 10:42 36.8 C 70 18 214/92 H Pulse Ox 01/24/19 06:59 93 01/24/19 02:35 92 01/23/19 22:28 91 01/23/19 20:27 96 01/23/19 18:52 97 01/23/19 17:55 96 01/23/19 16:48 96 01/23/19 16:21 95 01/23/19 15:50 98 01/23/19 15:40 99 01/23/19 15:30 99 01/23/19 15:20 98 01/23/19 15:10 99 01/23/19 15:04 99 01/23/19 11:57 96 01/23/19 10:42 97 Pain Intensity Right Knee: Pain Intensity: 0 Notes Mental Status: alert / awake / arousable and participated in evaluation Patient Amnestic to Procedure: Yes Nausea / Vomiting: adequately controlled Pain: adequately controlled Airway Patency, RR, SpO2: stable & adequate BP & HR: stable & adequate Hydration State: stable & adequate Neuraxial Anesthesia: was administered and sensory block resolved Anesthetic Complications: no major complications apparent
[2019-01-24] MEDS: ONDANSETRON INJ 2 MG/ML 2 ML VIAL IV PRN ×2 (11:14→17:47)
[2019-01-24] MEDS: METOPROLOL SUCC 25MG EXT REL TAB PO SCH (11:14)
[2019-01-24] MEDS: MONTELUKAST SODIUM 10 MG TABLET PO SCH (20:23)
[2019-01-24] MEDS: SENNA 8.6 MG TAB PO SCH (20:23)
[2019-01-24] MEDS: HYDROmorphone INJ 0.5 MG/0.5 ML SYR IV PRN (22:42)
[2019-01-25] MEDS: ACETAMINOPHEN 500 MG TAB PO SCH ×3 (04:54→20:30)
[2019-01-25] MEDS: LEVOTHYROXINE SODIUM 75 MCG TABLET PO SCH (05:42)
[2019-01-25] MEDS: ONDANSETRON INJ 2 MG/ML 2 ML VIAL IV PRN ×2 (07:58→15:36)
[2019-01-25] MEDS: TRAMADOL HCL 50 MG TABLET PO PRN (07:58)
--- NOTE | 2019-01-25 08:27 | Progress Note ---
DATE: 01/25/2019 SUBJECTIVE: A 78-year-old white female postop day 2 from right knee replacement. She is doing okay. Had a significant amount of pain yesterday, but doing a bit better this morning. No chest pain or shortness of breath. Not feeling dizzy or lightheaded. OBJECTIVE: VITAL SIGNS: Temperature 36.4. Vital signs stable. GENERAL: Physical examination shows a pleasant elderly female. She is lying in bed, looks pretty comfortable. I had to wake her this morning. EXTREMITIES: Examination of the right leg reveals the leg to be well aligned. Dressing is clean, dry and intact. She can dorsiflex and plantarflex her foot appropriately. She is neurologically intact. ASSESSMENT: A 78-year-old white female postop day 2 from right knee replacement, doing pretty well. Some pain, but not out of the ordinary. We have to be careful with pain meds due to her age and risk for confusion. PLAN: 1. DVT prophylaxis including thigh-high TEDs, SCDs, and aspirin twice a day. 2. PT/OT. Weight bear as tolerated. Right total knee protocol. 3. Pain control, doing well with current pain regimen. 4. Disposition: She is planning to be discharged to [facility] for a brief rehab stay once medically stable and approved. She needs a 3-night stay and hopefully discharge tomorrow.
[2019-01-25] MEDS: DOCUSATE SODIUM 100 MG CAP PO SCH ×2 (08:56→20:30)
[2019-01-25] MEDS: ACETYLCYSTEINE 600 MG CAP PO SCH ×2 (08:56→20:32)
[2019-01-25] MEDS: ASPIRIN 81 MG ECTAB PO SCH ×2 (08:56→20:38)
[2019-01-25] MEDS: MULTIVITAMIN TAB PO SCH (08:56)
[2019-01-25] MEDS: AZITHROMYCIN 250 MG TAB PO SCH (08:57)
[2019-01-25] MEDS: SODIUM CHLORIDE 0.65% NA SOLN 45 ML (OCEAN) NAE SCH (08:57)
[2019-01-25] MEDS: CALCIUM 600MG + VIT D 400 IU TAB PO SCH ×2 (08:57→20:31)
[2019-01-25] MEDS: ASCORBIC ACID 500 MG TAB PO SCH ×2 (08:57→16:16)
[2019-01-25] MEDS: FERROUS GLUCONATE 324 MG TAB PO SCH ×2 (08:57→16:16)
[2019-01-25] MEDS: HYDROmorphone INJ 0.5 MG/0.5 ML SYR IV PRN (12:49)
[2019-01-25] MEDS: METOPROLOL SUCC 25MG EXT REL TAB PO SCH (12:50)
[2019-01-25] MEDS: HYDROmorphone HCL 2 MG TAB PO PRN ×2 (15:37→20:44)
[2019-01-25] MEDS: SENNA 8.6 MG TAB PO SCH (20:30)
[2019-01-25] MEDS: MONTELUKAST SODIUM 10 MG TABLET PO SCH (20:31)
[2019-01-26] MEDS ORDERED: ALBUTEROL INH PRN (01:05)
[2019-01-26] MEDS: ACETAMINOPHEN 500 MG TAB PO SCH ×2 (04:55→11:49)
[2019-01-26] MEDS: LEVOTHYROXINE SODIUM 75 MCG TABLET PO SCH (05:43)
[2019-01-26] MEDS: HYDROmorphone HCL 2 MG TAB PO PRN ×2 (08:03→11:48)
[2019-01-26] MEDS: DOCUSATE SODIUM 100 MG CAP PO SCH (08:04)
[2019-01-26] MEDS: CALCIUM 600MG + VIT D 400 IU TAB PO SCH (08:04)
[2019-01-26] MEDS: ACETYLCYSTEINE 600 MG CAP PO SCH (08:04)
[2019-01-26] MEDS: FERROUS GLUCONATE 324 MG TAB PO SCH (08:04)
[2019-01-26] MEDS: PANTOprazole 40 MG TAB PO SCH (08:04)
[2019-01-26] MEDS: MULTIVITAMIN TAB PO SCH (08:04)
[2019-01-26] MEDS: ASCORBIC ACID 500 MG TAB PO SCH (08:05)
[2019-01-26] MEDS: AZITHROMYCIN 250 MG TAB PO SCH (08:05)
[2019-01-26] MEDS: SODIUM CHLORIDE 0.65% NA SOLN 45 ML (OCEAN) NAE SCH (08:05)
[2019-01-26] MEDS: ASPIRIN 81 MG ECTAB PO SCH (08:05)
[2019-01-26] MEDS ORDERED: FLUTICASONE/UMECLIDIN/VILANTER INH SCH (09:00)
[2019-01-26] MEDS: METOPROLOL SUCC 25MG EXT REL TAB PO SCH (11:49)
--- NOTE | 2019-01-26 12:20 | Progress Note ---
DATE: 01/26/2019 SUBJECTIVE: A 78-year-old white female, postop day 3 from a right knee replacement. She is doing much better this morning. Nausea is improved. Seems to be better on the Dilaudid. No chest pain or shortness of breath. Not feeling dizzy or lightheaded. OBJECTIVE: VITAL SIGNS: Temperature is 36.6. Vital signs stable. GENERAL: Reveals a pleasant elderly female. She is sitting up in her bedside chair, looks pretty comfortable. EXTREMITIES: Examination of the right leg reveals incision to be clean, dry and intact. There is no drainage. Calf is soft and supple. She can dorsiflex and plantarflex her foot appropriately. She is neurologically intact. ASSESSMENT: A 78-year-old white female, postop day 3 from a left knee replacement, doing better. Pain is controlled. She seems to be better on Dilaudid. Less nausea. PLAN: 1. DVT prophylaxis including thigh-high TEDs, SCDs, and aspirin twice a day. 2. PT/OT. Weight bear as tolerated. Right total knee protocol. 3. Pain control, doing pretty well with current pain regimen. She seems to be doing better on the Dilaudid. 4. Nausea. We will continue using Zofran as needed. 5. Disposition: Plan to discharge to [place] later today.
[2019-01-28] MEDS ORDERED: LEVOTHYROXINE SODIUM 75 MCG TABLET PO SCH (06:30)
--- NOTE | 2019-01-30 18:04 | Discharge Summary ---
ADMITTING PHYSICIAN AND SURGEON: Dr. Billy Galeano. ADMITTING DIAGNOSIS: Right knee degenerative joint disease. SURGERY PERFORMED: Right total knee arthroplasty. SECONDARY DIAGNOSES: Hypothyroidism, COPD/emphysema, hypertension, elevated cholesterol, gastroesophageal reflux disease, mild obesity. CONSULTS: None obtained. HISTORY AND PHYSICAL EXAMINATION: Well documented in the patient's chart. HOSPITAL COURSE: The patient was admitted on 01/23/2019 underwent total knee arthroplasty, tolerated the procedure well without complications. She was transferred to the PACU postoperatively and later to the orthopedic for further care. She was given Ancef for antibiotic prophylaxis, RALPH stockings, SCDs and aspirin for DVT prophylaxis. Hemoglobin, hematocrit and vital signs were monitored during her hospital stay and remained stable. She did not require blood transfusions. There were no complications. By postoperative day 3, she was tolerating a regular diet, pain was controlled with oral pain medicine. She was participating in physical therapy. Postop day 3, she was transferred to a intermediate facility. She was given printed discharge instructions including new prescriptions for extra strength Tylenol, aspirin, hydromorphone, and Zofran. Continue her home medications, continue physical therapy, weightbearing as tolerated, RALPH stockings. Follow up approximately 2 weeks postoperatively or sooner if there are any problems or concerns.
== END 2019-01-26 12:00 | DRG 470 ==
LOC: ASU 09:45 → 3E 15:05